=== PATIENT | female | born 1940 | race Caucasian/White ===

== ENCOUNTER 2020-05-26 08:38 | Inpatient (IN) | payer OTHER ==
[~2020-05-26] VITALS: Ht 160 cm; Wt 84.3 kg
[2020-05-26] MEDS ORDERED: ALBUTEROL SULF 2.5 MG/0.5ML(0.5%) NEB SOLN NEB ONE (09:15)
[2020-05-26] MEDS ORDERED: IPRATROPIUM BROM 0.5 MG/2.5ML INH SOL NEB ONE (09:15)
[2020-05-26] MEDS ORDERED: methylPREDNISolone SOD SUCC 125 MG/2 ML VL IV ONE (09:15)
[2020-05-26 09:34] LABS: Albumin 3.5 g/dL (3.4-5.0); Calcium 8.3 mg/dL (8.5-10.1); Potassium 3.4 mmol/L (3.5-5.1)
[2020-05-26 09:35] LABS: Basophils # (auto) 0.3 10 ^3/uL (0-0.2); Basophils % (auto) 1.3 % (0.0-2.0); Eosinophils # (auto) 0.1 10 ^3/uL (0-0.8); Eosinophils % (auto) 0.5 % (0.0-7.0); Hematocrit 34.9 % (36.0-46.0); Hemoglobin 11.3 g/dL (12.2-16.2); Lymphocytes # (auto) 2.4 10 ^3/uL (0.4-5.4); Lymphocytes % (auto) 11.4 % (10.0-50.0); Mean Corpuscular Hemoglobin 27.8 pg (28.0-32.0); Mean Corpuscular Hgb Conc. 32.2 g/dL (32.0-36.0); Mean Corpuscular Volume 86.2 fL (80.0-100.0); Monocytes # (auto) 1.4 10 ^3/uL (0-1.3); Monocytes % (auto) 6.7 % (0.0-12.0); Neutrophils # (auto) 16.8 10 ^3/uL (1.6-8.6); Neutrophils % (auto) 80.1 % (37.0-80.0); Platelet Count (auto) 359 10^3/uL (140-450); Red Blood Cells 4.05 10^6/uL (4.0-5.20); Red Cell Distribution Width 17.4 % (11.8-14.3); White Blood Cell 20.9 10^3/uL (4.4-10.8)
[2020-05-26 09:38] LABS: BUN/Creatinine Ratio 9.1; Bilirubin, Total 0.4 mg/dL (0.2-1.0); Total Protein 6.6 g/dL (6.4-8.2)
[2020-05-26] MEDS ORDERED: DOXYCYCLINE 100MG/250ML 250 ML IV ONE (10:15)
[2020-05-26] MEDS ORDERED: NITROGLYCERIN 0.4 MG SL TAB SL PRN (13:30)
[2020-05-26] MEDS ORDERED: ALBUTEROL SULF HFA 90MCG INH 200DOSE IN PRN (14:15)
[2020-05-26] MEDS ORDERED: ONDANSETRON HCL 4 MG/2 ML VIAL IV PRN (14:15)
[2020-05-26] MEDS ORDERED: traMADol HCL 50 MG TAB PO PRN (14:15)
[2020-05-26] MEDS ORDERED: ACETAMINOPHEN 500 MG TAB PO PRN (14:15)
[2020-05-26] MEDS ORDERED: LACTULOSE 20Gm/30ML SOLN PO PRN (14:15)
[2020-05-26] MEDS ORDERED: MORPHINE SULF INJ 2 MG/ML SYRINGE 1ML IV PRN (14:15)
[2020-05-26] MEDS ORDERED: DEXTROSE (50%) 50ML SYRG IV PRN (14:15)
[2020-05-26] MEDS ORDERED: REMDESIVIR PER PHARMACY 0 ML IV SCH (14:15)
[2020-05-26] MEDS ORDERED: levoFLOXacin 500MG 100 ML IV ONE (14:15)
[2020-05-26] MEDS ORDERED: POTASSIUM EFFERVESENT TAB 25 MEQ PO ONE (14:15)
[2020-05-26] MEDS: ACCU-CHEK COMFORT CURVE STRIP VI SCH ×2 (17:27→22:13)
[2020-05-26] MEDS ORDERED: LOSA-39 PO (20:45)
[2020-05-26] MEDS ORDERED: FLU220IH INH (20:45)
[2020-05-26] MEDS ORDERED: LATA0.0020 EACHEYE (20:45)
[2020-05-26] MEDS ORDERED: LEVO150T10 PO (20:45)
[2020-05-26] MEDS ORDERED: ALBU108A5 PO (20:45)
[2020-05-26] MEDS ORDERED: VENL150C58 PO (20:45)
[2020-05-26] MEDS ORDERED: OMEP-263 PO (20:45)
[2020-05-26] MEDS ORDERED: AMLO-489 PO (20:45)
[2020-05-26] MEDS: ENOXAPARIN SOD 40 MG/0.4 ML SYRINGE SC SCH (21:41)
[2020-05-26] MEDS: CLINDAMYCIN 600MG IV 50 ML IV SCH (21:41)
[2020-05-26] MEDS ORDERED: FAMOTIDINE 20 MG TAB PO SCH (22:00)
[2020-05-26] MEDS ORDERED: BUDESONIDE (INHALATION) 180 MCG IH IN SCH (22:00)
[2020-05-26] MEDS: ALBUTEROL SULF 2.5 MG/0.5ML(0.5%) NEB SOLN NEB PRN (22:05)
[2020-05-27] MEDS: ALBUTEROL SULF 2.5 MG/0.5ML(0.5%) NEB SOLN NEB PRN (04:10)
[2020-05-27 05:10] LABS: Basophils # (auto) 0.1 10 ^3/uL (0-0.2); Basophils % (auto) 0.3 % (0.0-2.0); Eosinophils # (auto) 0 10 ^3/uL (0-0.8); Hematocrit 33.2 % (36.0-46.0); Hemoglobin 10.7 g/dL (12.2-16.2); Lymphocytes # (auto) 1.1 10 ^3/uL (0.4-5.4); Lymphocytes % (auto) 5.6 % (10.0-50.0); Mean Corpuscular Hgb Conc. 32.4 g/dL (32.0-36.0); Mean Corpuscular Volume 86.4 fL (80.0-100.0); Monocytes # (auto) 0.9 10 ^3/uL (0-1.3); Neutrophils # (auto) 16.8 10 ^3/uL (1.6-8.6); Neutrophils % (auto) 89.1 % (37.0-80.0); Platelet Count (auto) 319 10^3/uL (140-450); Red Blood Cells 3.84 10^6/uL (4.0-5.20); Red Cell Distribution Width 17.3 % (11.8-14.3); White Blood Cell 18.9 10^3/uL (4.4-10.8)
[2020-05-27 05:24] LABS: Albumin 3.2 g/dL (3.4-5.0); BUN/Creatinine Ratio 27.5; Calcium 8.9 mg/dL (8.5-10.1); Potassium 3.7 mmol/L (3.5-5.1)
[2020-05-27 05:33] LABS: Bilirubin, Total 0.4 mg/dL (0.2-1.0); Total Protein 6.2 g/dL (6.4-8.2)
[2020-05-27] MEDS: CLINDAMYCIN 600MG IV 50 ML IV SCH ×3 (05:47→22:00)
[2020-05-27] MEDS: ALBUTEROL SULF 2.5 MG/0.5ML(0.5%) NEB SOLN NEB SCH ×5 (06:00→22:00)
[2020-05-27] MEDS ORDERED: IVERMECTIN 3 MG TAB PO ONE (07:00)
[2020-05-27] MEDS: ACCU-CHEK COMFORT CURVE STRIP VI SCH ×4 (07:30→22:30)
[2020-05-27] MEDS: ENOXAPARIN SOD 40 MG/0.4 ML SYRINGE SC SCH (09:15)
[2020-05-27] MEDS: levoFLOXacin 500MG 100 ML IV SCH (09:15)
[2020-05-27] MEDS ORDERED: ZINC SULFATE 220mg CAP or TAB PO SCH (10:00)
[2020-05-27] MEDS ORDERED: CHOLECALCIFEROL (VITD3) 2,000 UNIT CAP/TAB PO SCH (10:00)
[2020-05-27] MEDS ORDERED: ASCORBIC ACID 1,000 MG TAB PO SCH (10:00)
[2020-05-27] MEDS ORDERED: DexAMETHasone SOD PHOS 10MG/1ML VIAL INJ IV SCH (10:00)
[2020-05-27] MEDS ORDERED: SIMV-13 PO (17:53)
[2020-05-27] MEDS ORDERED: FLUT110A INH (17:53)
[2020-05-27 18:58] LABS: Urine Bacteria NONE SEEN /hpf (None Seen); Urine Blood Negative /uL (Negative); Urine Budding Yeast MANY /hpf (None Seen); Urine Hyaline Cast FEW /lpf (0 - 2); Urine Mucus FEW (None Seen); Urine Specific Gravity 1.016 (1.001-1.035); Urine WBC 2 /hpf (0 - 5)
[2020-05-27] MEDS: D5W 5% 1,000 ML IV SCH (20:38)
[2020-05-27] MEDS ORDERED: FUROSEMIDE 20 MG/2 ML VIAL IV ONE (21:30)
[2020-05-28] MEDS: PANTOPRAZOLE 40 MG TAB PO SCH (01:36)
[2020-05-28] MEDS: ALBUTEROL SULF 2.5 MG/0.5ML(0.5%) NEB SOLN NEB SCH ×6 (03:16→21:55)
[2020-05-28] MEDS: D5W 5% 1,000 ML IV SCH (05:35)
[2020-05-28] MEDS: ACCU-CHEK COMFORT CURVE STRIP VI SCH ×4 (07:00→22:01)
[2020-05-28 07:42] LABS: Basophils # (auto) 0.1 10 ^3/uL (0-0.2); Basophils % (auto) 0.4 % (0.0-2.0); Eosinophils # (auto) 0 10 ^3/uL (0-0.8); Eosinophils % (auto) 0.1 % (0.0-7.0); Hematocrit 36.4 % (36.0-46.0); Hemoglobin 11.8 g/dL (12.2-16.2); Lymphocytes # (auto) 2.4 10 ^3/uL (0.4-5.4); Lymphocytes % (auto) 9.1 % (10.0-50.0); Mean Corpuscular Hemoglobin 28.1 pg (28.0-32.0); Mean Corpuscular Hgb Conc. 32.4 g/dL (32.0-36.0); Mean Corpuscular Volume 86.8 fL (80.0-100.0); Monocytes # (auto) 1.4 10 ^3/uL (0-1.3); Monocytes % (auto) 5.3 % (0.0-12.0); Neutrophils # (auto) 22.7 10 ^3/uL (1.6-8.6); Neutrophils % (auto) 85.1 % (37.0-80.0); Platelet Count (auto) 361 10^3/uL (140-450); Red Cell Distribution Width 17.7 % (11.8-14.3); White Blood Cell 26.7 10^3/uL (4.4-10.8)
[2020-05-28] MEDS: CLINDAMYCIN 600MG IV 50 ML IV SCH ×2 (08:00→14:00)
[2020-05-28 08:02] LABS: Calcium 9.3 mg/dL (8.5-10.1); Potassium 3.5 mmol/L (3.5-5.1)
[2020-05-28 08:06] LABS: BUN/Creatinine Ratio 21.6
[2020-05-28] MEDS: levoFLOXacin 500MG 100 ML IV SCH (10:00)
[2020-05-28] MEDS: ENOXAPARIN SOD 40 MG/0.4 ML SYRINGE SC SCH (10:00)
[2020-05-28] MEDS: predniSONE 20 MG TAB PO SCH (10:00)
[2020-05-28] MEDS: VENLAFAXINE HCL 37.5mg XR cap PO SCH (10:11)
[2020-05-28] MEDS ORDERED: IPRATROPIUM BROM 0.5 MG/2.5ML INH SOL ONE (10:44)
[2020-05-28 17:00] VITALS: BP 138/82
[2020-05-28] MEDS: IPRATROPIUM BROM 0.5 MG/2.5ML INH SOL NEB PRN ×2 (18:03→22:01)
[2020-05-28] MEDS ORDERED: VANCOMYCIN PER PHARMACY 0 MG IV SCH (18:15)
[2020-05-28 18:35] VITALS: BP 117/72
[2020-05-28] MEDS ORDERED: VANCOMYCIN 1GM/250ML 250 ML IV ONE (18:45)
[2020-05-28] MEDS ORDERED: ERTAPENEM SOD INJ 1 GM in SODIUM CHL 0.9% 50 ML IV ONE (20:00)
[2020-05-28 22:00] VITALS: BP 120/77
[2020-05-29] MEDS: ALBUTEROL SULF 2.5 MG/0.5ML(0.5%) NEB SOLN NEB SCH ×2 (01:47→18:44)
[2020-05-29 05:00] VITALS: BP 117/66
[2020-05-29] MEDS: ACCU-CHEK COMFORT CURVE STRIP VI SCH ×3 (06:37→17:00)
[2020-05-29 06:49] LABS: Basophils # (auto) 0 10 ^3/uL (0-0.2); Eosinophils # (auto) 0.1 10 ^3/uL (0-0.8); Eosinophils % (auto) 0.5 % (0.0-7.0); Hematocrit 29.9 % (36.0-46.0); Hemoglobin 9.8 g/dL (12.2-16.2); Lymphocytes # (auto) 1.9 10 ^3/uL (0.4-5.4); Lymphocytes % (auto) 15.5 % (10.0-50.0); Mean Corpuscular Hemoglobin 28.3 pg (28.0-32.0); Mean Corpuscular Hgb Conc. 32.9 g/dL (32.0-36.0); Mean Corpuscular Volume 85.9 fL (80.0-100.0); Monocytes % (auto) 8.5 % (0.0-12.0); Neutrophils # (auto) 9.2 10 ^3/uL (1.6-8.6); Neutrophils % (auto) 75.5 % (37.0-80.0); Platelet Count (auto) 267 10^3/uL (140-450); Red Blood Cells 3.48 10^6/uL (4.0-5.20); Red Cell Distribution Width 17.7 % (11.8-14.3); White Blood Cell 12.2 10^3/uL (4.4-10.8)
[2020-05-29 07:08] LABS: BUN/Creatinine Ratio 27.8; Calcium 8.3 mg/dL (8.5-10.1); Potassium 3.1 mmol/L (3.5-5.1)
[2020-05-29 08:00] VITALS: BP 129/72
[2020-05-29] MEDS: ENOXAPARIN SOD 40 MG/0.4 ML SYRINGE SC SCH (10:32)
[2020-05-29] MEDS: predniSONE 20 MG TAB PO SCH (10:32)
[2020-05-29] MEDS: PANTOPRAZOLE 40 MG TAB PO SCH (10:32)
[2020-05-29] MEDS: VENLAFAXINE HCL 37.5mg XR cap PO SCH (10:57)
[2020-05-29] MEDS ORDERED: VANCOMYCIN 1GM/250ML 250 ML IV SCH (15:00)
[2020-05-29] MEDS ORDERED: POTASSIUM CHL 20 Meq TABLET PO ONE (15:45)
[2020-05-29] MEDS ORDERED: POTASSIUM CHL 20MEQ/100ML 100 ML IV ONE (15:45)
[2020-05-29] MEDS ORDERED: levoFLOXacin 500 MG TAB PO SCH (15:45)
[2020-05-29] MEDS ORDERED: CLINDAMYCIN HCL 150 MG CAP PO SCH (15:45)
[2020-05-29 16:00] VITALS: BP 114/78
[2020-05-29] MEDS ORDERED: AMLO-489 PO (16:26)
[2020-05-29] MEDS ORDERED: POTA-220 PO (16:26)
[2020-05-29] MEDS ORDERED: CLIN300C8 PO (16:26)
[2020-05-29] MEDS ORDERED: LOSA-39 PO (16:26)
[2020-05-29] MEDS ORDERED: LEVO500T31 PO (16:26)
[2020-05-29] MEDS: IPRATROPIUM BROM 0.5 MG/2.5ML INH SOL NEB PRN (18:44)
[2020-05-29 18:49] VITALS: BP 114/78
[2020-05-29] MEDS ORDERED: ERTAPENEM SOD INJ 1 GM in SODIUM CHL 0.9% 50 ML IV SCH (21:00)
[2020-05-29] MEDS: ALBUTEROL SULF 2.5 MG/0.5ML(0.5%) NEB SOLN NEB PRN (21:10)
[2020-05-30] MEDS ORDERED: POTASSIUM CHL 20 Meq TABLET PO SCH (10:00)
== END 2020-05-29 21:43 | disposition home or self-care (01) | DRG 871 ==
LOC: EDBD 08:38 → ER 08:38 → TELE 13:19 → TELE-CENTR 05-28 17:02
PROVIDERS: ADMIT Internal Medicine; ATTEND Internal Medicine
DX: A41.9 Sepsis, unspecified organism (principal); J12.9 Viral pneumonia, unspecified; J96.21 Acute and chronic respiratory failure with hypoxia; J44.1 Chronic obstructive pulmonary disease with (acute) exacerbation; E87.0 Hyperosmolality and hypernatremia; J98.11 Atelectasis; J44.0 Chronic obstructive pulmonary disease with (acute) lower respiratory infection; Z20.822 Contact with and (suspected) exposure to COVID-19; J20.9 Acute bronchitis, unspecified; E87.6 Hypokalemia; I25.10 Atherosclerotic heart disease of native coronary artery without angina pectoris; K21.9 Gastro-esophageal reflux disease without esophagitis; F32.9 Major depressive disorder, single episode, unspecified; E66.01 Morbid (severe) obesity due to excess calories; F17.210 Nicotine dependence, cigarettes, uncomplicated; I50.9 Heart failure, unspecified; I11.0 Hypertensive heart disease with heart failure; Z68.25 Body mass index [BMI] 25.0-25.9, adult; Z88.8 Allergy status to other drugs, medicaments and biological substances; Z88.5 Allergy status to narcotic agent; Z79.51 Long term (current) use of inhaled steroids; Z95.1 Presence of aortocoronary bypass graft; Z95.3 Presence of xenogenic heart valve; Z98.84 Bariatric surgery status; Z79.899 Other long term (current) drug therapy
CPT/HCPCS: 36415; 36600; 71045; 71250; 80048; 80053; 81001; 82728; 82805; 82962; 83036; 83605; 83880; 84484; 85025; 87040; 87086; 87426; 87804; 93005; 93306; 94640; 96365; 96366; 96375; G0378; J1100; J1335; J1956; J3490

== ENCOUNTER 2020-06-18 10:53 | Inpatient (IN) | payer OTHER ==
[2020-06-18] VITALS (26 sets, daily range): BP systolic 67–136; BP diastolic 42–87
[~2020-06-18] VITALS: Ht 157.5 cm; Wt 76.0 kg
[~2020-06-18 10:53] MED LIST: ALBU108A5 PO; AMLO-489 PO; CLIN300C8 PO; FLU220IH INH; FLUT110A INH; LATA0.0020 EACHEYE; LEVO150T10 PO; LEVO500T31 PO; LOSA-39 PO; OMEP-263 PO; POTA-220 PO; SIMV-13 PO; VENL150C58 PO
[2020-06-18] MEDS ORDERED: SUCCINYLCHOLINE CHLORIDE 20 MG/ML 10ML VIAL IV ONE ×2 (10:57→11:02)
[2020-06-18] MEDS ORDERED: ETOMIDATE (2MG/ML) 20ML VIAL IV ONE ×2 (10:57→11:01)
[2020-06-18] MEDS ORDERED: MIDAZOLAM DRIP 50 mg/50mL 50 ML IV ONE (11:01)
[2020-06-18] MEDS: MIDAZOLAM DRIP 50 mg/50mL 50 ML IV SCH ×3 (11:06→20:35)
[2020-06-18] MEDS ORDERED: fentaNYL Drip 2500mCg/250mlNS 250 ML IV ONE (11:28)
[2020-06-18] MEDS: fentaNYL Drip 2500mCg/250mlNS 250 ML IV SCH (11:45)
[2020-06-18 12:39] LABS: Lactic Acid w/Reflex 3.5 mmol/L (0.4-2.0)
[2020-06-18] MEDS ORDERED: NOREPINEPHRINE 8 MG/250ML KIT 250 ML IV SCH (13:00)
[2020-06-18] MEDS: NOREPINEPHRINE 8 MG/250ML KIT 250 ML IV SCH (13:22)
[2020-06-18 13:35] LABS: Basophils # (auto) 0 10 ^3/uL (0-0.2); Basophils % (auto) 0.1 % (0.0-2.0); Eosinophils # (auto) 0 10 ^3/uL (0-0.8); Lymphocytes # (auto) 0.6 10 ^3/uL (0.4-5.4); Lymphocytes % (auto) 2.7 % (10.0-50.0); Mean Corpuscular Hgb Conc. 32.4 g/dL (32.0-36.0); Mean Corpuscular Volume 86.4 fL (80.0-100.0); Monocytes # (auto) 1.1 10 ^3/uL (0-1.3); Neutrophils # (auto) 20.3 10 ^3/uL (1.6-8.6); Neutrophils % (auto) 92.2 % (37.0-80.0); Platelet Count (auto) 357 10^3/uL (140-450); Red Blood Cells 3.59 10^6/uL (4.0-5.20); Red Cell Distribution Width 19.7 % (11.8-14.3); White Blood Cell 22.1 10^3/uL (4.4-10.8)
[2020-06-18 13:49] LABS: Albumin 2.7 g/dL (3.4-5.0); Potassium 3.2 mmol/L (3.5-5.1)
[2020-06-18 13:54] LABS: BUN/Creatinine Ratio 13.9; Bilirubin, Total 0.3 mg/dL (0.2-1.0); Total Protein 5.6 g/dL (6.4-8.2)
[2020-06-18] MEDS ORDERED: DEXTROSE (50%) 50ML SYRG IV PRN (14:00)
[2020-06-18] MEDS ORDERED: VANCOMYCIN PER PHARMACY 0 MG IV SCH (14:00)
[2020-06-18] MEDS ORDERED: NITROGLYCERIN 0.4 MG SL TAB SL PRN (14:00)
[2020-06-18] MEDS ORDERED: POTASSIUM CHL 20MEQ/100ML 100 ML IV ONE (15:00)
[2020-06-18] MEDS ORDERED: SODIUM CHLORIDE 0.9% 500 ML IV ONE (15:00)
[2020-06-18 15:48] LABS: Magnesium 2.3 mg/dL (1.6-2.6)
[2020-06-18] MEDS: SODIUM CHLORIDE 0.9% 1,000 ML IV SCH (15:54)
[2020-06-18] MEDS ORDERED: VANCOMYCIN 1GM/250ML 250 ML IV ONE (16:00)
[2020-06-18] MEDS: ACCU-CHEK COMFORT CURVE STRIP VI SCH (17:26)
[2020-06-18] MEDS: PIPERACILLIN-TAZOB 3.375GM 100 ML IV SCH ×2 (17:53→23:59)
[2020-06-18] MEDS: InsuLIN REG 1unit/0.01ml Soln (100units/ml) SC SCH ×2 (17:54→23:59)
[2020-06-18 20:13] LABS: Potassium 3.8 mmol/L (3.5-5.1)
[2020-06-18] MEDS: ATORVASTATIN 20 MG TAB PO SCH (21:54)
[2020-06-19] VITALS (89 sets, daily range): BP systolic 55–155; BP diastolic 31–97
[2020-06-19] MEDS: SODIUM CHLORIDE 0.9% 1,000 ML IV SCH (01:18)
[2020-06-19] MEDS: MIDAZOLAM DRIP 50 mg/50mL 50 ML IV SCH ×5 (01:18→22:06)
[2020-06-19] MEDS: fentaNYL Drip 2500mCg/250mlNS 250 ML IV SCH (01:43)
[2020-06-19 05:02] LABS: Basophils # (auto) 0 10 ^3/uL (0-0.2); Basophils % (auto) 0.2 % (0.0-2.0); Eosinophils # (auto) 0 10 ^3/uL (0-0.8); Eosinophils % (auto) 0.2 % (0.0-7.0); Hematocrit 31.5 % (36.0-46.0); Hemoglobin 10.2 g/dL (12.2-16.2); Lymphocytes # (auto) 1.4 10 ^3/uL (0.4-5.4); Lymphocytes % (auto) 9.3 % (10.0-50.0); Mean Corpuscular Hemoglobin 28.2 pg (28.0-32.0); Mean Corpuscular Hgb Conc. 32.3 g/dL (32.0-36.0); Mean Corpuscular Volume 87.3 fL (80.0-100.0); Monocytes # (auto) 1.1 10 ^3/uL (0-1.3); Monocytes % (auto) 7.5 % (0.0-12.0); Neutrophils # (auto) 12.4 10 ^3/uL (1.6-8.6); Neutrophils % (auto) 82.8 % (37.0-80.0); Nucleated Red Blood Cells % 0.1 %; Platelet Count (auto) 320 10^3/uL (140-450); Red Blood Cells 3.61 10^6/uL (4.0-5.20); Red Cell Distribution Width 19.9 % (11.8-14.3); White Blood Cell 14.9 10^3/uL (4.4-10.8)
[2020-06-19 05:27] LABS: BUN/Creatinine Ratio 16.4; Calcium 7.9 mg/dL (8.5-10.1); Magnesium 2.1 mg/dL (1.6-2.6)
[2020-06-19] MEDS: ALBUTEROL SULF 2.5 MG/0.5ML(0.5%) NEB SOLN NEB SCH ×5 (05:50→18:36)
[2020-06-19] MEDS: PIPERACILLIN-TAZOB 3.375GM 100 ML IV SCH ×4 (05:59→23:44)
[2020-06-19] MEDS: InsuLIN REG 1unit/0.01ml Soln (100units/ml) SC SCH ×4 (06:00→23:44)
[2020-06-19] MEDS: ACCU-CHEK COMFORT CURVE STRIP VI SCH ×5 (06:00→23:44)
[2020-06-19] MEDS ORDERED: FUROSEMIDE 20 MG/2 ML VIAL IV ONE (08:30)
[2020-06-19] MEDS: POTASSIUM CHL 20MEQ/100ML 100 ML IV SCH ×2 (09:04→11:31)
[2020-06-19] MEDS ORDERED: FAMOTIDINE (10MG/ML) 2ML VL IV SCH (10:00)
[2020-06-19] MEDS ORDERED: ENOXAPARIN SOD 40 MG/0.4 ML SYRINGE SC SCH (10:00)
[2020-06-19] MEDS: ACETAMINOPHEN 650 mg PER 20.3 mL UD GT PRN ×2 (10:03→21:25)
[2020-06-19 10:25] LABS: INR 1.03 (0.9-1.15); Partial Thromboplastin Time 25.1 sec (23.0-31.2)
[2020-06-19] MEDS: PANTOPRAZOLE 40 MG/10 ML VIAL INJ IV SCH ×2 (11:39→21:42)
[2020-06-19] MEDS: ALBUMIN 25% 100 ML IV SCH ×2 (11:40→19:28)
[2020-06-19 12:22] LABS: Urine Bacteria FEW /hpf (None Seen); Urine Blood 2+ /uL (Negative); Urine Budding Yeast OCCASIONAL /hpf (None Seen); Urine Hyaline Cast FEW /lpf (0 - 2); Urine Mucus FEW (None Seen); Urine WBC 9 /hpf (0 - 5)
[2020-06-19] MEDS: IPRATROPIUM BROM 0.5 MG/2.5ML INH SOL NEB SCH ×2 (12:22→18:36)
[2020-06-19] MEDS: NOREPINEPHRINE 8 MG/250ML KIT 250 ML IV SCH (13:16)
[2020-06-19] MEDS: LEVOTHYROXINE SODIUM 100 MCG/5 ML INJ IV SCH (15:10)
[2020-06-19] MEDS: VANCOMYCIN 1GM/250ML 250 ML IV SCH (15:55)
[2020-06-19] MEDS: VENLAFAXINE HCL 37.5MG TABLET PO SCH ×2 (15:56→21:42)
[2020-06-19] MEDS ORDERED: OMEP-434 PO (15:59)
[2020-06-19] MEDS ORDERED: ASPI-691 PO (16:01)
[2020-06-19] MEDS ORDERED: MULT-688 PO (17:08)
[2020-06-19] MEDS ORDERED: CYAN500T15 PO (17:08)
[2020-06-19] MEDS ORDERED: TIOT1AER IN (17:08)
[2020-06-19] MEDS ORDERED: IPRA0.00 IN (17:08)
[2020-06-19] MEDS ORDERED: CHOL20007 PO (17:08)
[2020-06-19] MEDS ORDERED: [UNRECOGNIZED DRUG - CODE] PO (17:08)
[2020-06-19] MEDS: ATORVASTATIN 20 MG TAB PO SCH (21:42)
[2020-06-20] VITALS (101 sets, daily range): BP systolic 85–151; BP diastolic 52–104
[2020-06-20] MEDS: ALBUTEROL SULF 2.5 MG/0.5ML(0.5%) NEB SOLN NEB SCH ×5 (00:19→23:30)
[2020-06-20] MEDS: IPRATROPIUM BROM 0.5 MG/2.5ML INH SOL NEB SCH ×5 (00:19→23:30)
[2020-06-20] MEDS: ALBUMIN 25% 100 ML IV SCH (02:48)
[2020-06-20] MEDS: MIDAZOLAM DRIP 50 mg/50mL 50 ML IV SCH ×5 (03:02→23:06)
[2020-06-20] MEDS: ACETAMINOPHEN 650 mg PER 20.3 mL UD GT PRN ×2 (03:54→17:06)
[2020-06-20 04:30] LABS: Hematocrit 30.7 % (36.0-46.0); Mean Corpuscular Hemoglobin 28.3 pg (28.0-32.0); Mean Corpuscular Hgb Conc. 32.4 g/dL (32.0-36.0); Mean Corpuscular Volume 87.3 fL (80.0-100.0); Platelet Count (auto) 274 10^3/uL (140-450); Red Blood Cells 3.52 10^6/uL (4.0-5.20); Red Cell Distribution Width 19.7 % (11.8-14.3); White Blood Cell 25.7 10^3/uL (4.4-10.8)
[2020-06-20 04:43] LABS: Basophils % (manual) 0 (0.0-2.0); Blast Cells 0; Eosinophils % (manual) 0 (0-7); Myelocytes % 0; Promyelocytes % 0; Reactive Lymphocytes 0
[2020-06-20 05:09] LABS: BUN/Creatinine Ratio 11.1
[2020-06-20] MEDS: ACCU-CHEK COMFORT CURVE STRIP VI SCH ×4 (05:27→23:29)
[2020-06-20] MEDS: PIPERACILLIN-TAZOB 3.375GM 100 ML IV SCH ×3 (05:27→17:06)
[2020-06-20] MEDS: InsuLIN REG 1unit/0.01ml Soln (100units/ml) SC SCH ×4 (05:27→23:29)
[2020-06-20] MEDS: fentaNYL Drip 2500mCg/250mlNS 250 ML IV SCH (05:33)
[2020-06-20 06:41] LABS: Band Neutrophils % (manual) 24; Lymphocytes % (manual) 7 (10.0-50.0); Metamyelocytes % 1; Monocytes % (manual) 5 (0-12)
[2020-06-20] MEDS: LEVOTHYROXINE SODIUM 100 MCG/5 ML INJ IV SCH (09:45)
[2020-06-20] MEDS: PANTOPRAZOLE 40 MG/10 ML VIAL INJ IV SCH ×2 (09:45→21:43)
[2020-06-20] MEDS: VENLAFAXINE HCL 37.5MG TABLET PO SCH ×2 (09:45→21:58)
[2020-06-20] MEDS ORDERED: FUROSEMIDE 40 MG/4 ML VIAL IV ONE (12:45)
[2020-06-20] MEDS: NOREPINEPHRINE 8 MG/250ML KIT 250 ML IV SCH (13:15)
[2020-06-20] MEDS: POTASSIUM CHL 20MEQ/100ML 100 ML IV SCH ×4 (14:15→23:21)
[2020-06-20] MEDS: VANCOMYCIN 1GM/250ML 250 ML IV SCH (16:11)
[2020-06-20 20:25] LABS: Magnesium 1.9 mg/dL (1.6-2.6)
[2020-06-20 20:59] LABS: Potassium 2.8 mmol/L (3.5-5.1)
[2020-06-20] MEDS ORDERED: POTASSIUM EFFERVESENT TAB 25 MEQ GT ONE (21:15)
[2020-06-20] MEDS: MAGNESIUM SULFATE 1GM/100ML 100 ML IV SCH ×2 (21:42→23:08)
[2020-06-20] MEDS: ATORVASTATIN 20 MG TAB PO SCH (21:43)
[2020-06-20] MEDS: MEROPENEM 1GM IVPB 100 ML IV SCH (21:43)
[2020-06-21] VITALS (87 sets, daily range): BP systolic 78–123; BP diastolic 48–87
[2020-06-21] MEDS: MAGNESIUM SULFATE 1GM/100ML 100 ML IV SCH (00:09)
[2020-06-21] MEDS: ACETAMINOPHEN 650 mg PER 20.3 mL UD GT PRN (00:25)
[2020-06-21] MEDS: NOREPINEPHRINE 8 MG/250ML KIT 250 ML IV SCH (01:18)
[2020-06-21] MEDS: POTASSIUM CHL 20MEQ/100ML 100 ML IV SCH (02:20)
[2020-06-21] MEDS: MIDAZOLAM DRIP 50 mg/50mL 50 ML IV SCH (04:06)
[2020-06-21] MEDS: MEROPENEM 1GM IVPB 100 ML IV SCH ×3 (05:38→22:00)
[2020-06-21] MEDS: InsuLIN REG 1unit/0.01ml Soln (100units/ml) SC SCH ×3 (05:39→17:14)
[2020-06-21] MEDS: ACCU-CHEK COMFORT CURVE STRIP VI SCH ×3 (05:39→18:00)
[2020-06-21 06:15] LABS: Hematocrit 30.1 % (36.0-46.0); Mean Corpuscular Hemoglobin 28.7 pg (28.0-32.0); Mean Corpuscular Hgb Conc. 33.1 g/dL (32.0-36.0); Mean Corpuscular Volume 86.8 fL (80.0-100.0); Platelet Count (auto) 278 10^3/uL (140-450); Red Blood Cells 3.47 10^6/uL (4.0-5.20); White Blood Cell 27.7 10^3/uL (4.4-10.8)
[2020-06-21 06:26] LABS: Red Cell Distribution Width 20.1 % (11.8-14.3)
[2020-06-21 06:28] LABS: Basophils % (manual) 0 (0.0-2.0); Blast Cells 0; Metamyelocytes % 0; Myelocytes % 0; Promyelocytes % 0; Reactive Lymphocytes 0
[2020-06-21 06:32] LABS: Calcium 8.2 mg/dL (8.5-10.1); Potassium 3.4 mmol/L (3.5-5.1)
[2020-06-21 06:39] LABS: BUN/Creatinine Ratio 17.4
[2020-06-21] MEDS: ALBUTEROL SULF 2.5 MG/0.5ML(0.5%) NEB SOLN NEB SCH ×3 (07:07→18:28)
[2020-06-21] MEDS: IPRATROPIUM BROM 0.5 MG/2.5ML INH SOL NEB SCH ×3 (07:07→18:28)
[2020-06-21 08:13] LABS: Band Neutrophils % (manual) 19; Eosinophils % (manual) 1 (0-7); Lymphocytes % (manual) 1 (10.0-50.0); Monocytes % (manual) 2 (0-12)
[2020-06-21] MEDS ORDERED: POTASSIUM CHL 20MEQ/100ML 100 ML IV ONE (08:45)
[2020-06-21] MEDS: PANTOPRAZOLE 40 MG/10 ML VIAL INJ IV SCH ×2 (09:17→22:00)
[2020-06-21] MEDS: LEVOTHYROXINE SODIUM 100 MCG/5 ML INJ IV SCH (09:18)
[2020-06-21] MEDS: VENLAFAXINE HCL 37.5MG TABLET PO SCH ×2 (09:18→22:00)
[2020-06-21] MEDS: FLUCONAZOLE 200MG/100ML 100 ML IV SCH (13:11)
[2020-06-21] MEDS: VANCOMYCIN 1GM/250ML 250 ML IV SCH (16:12)
[2020-06-21] MEDS: ATORVASTATIN 20 MG TAB PO SCH (22:00)
[2020-06-22] VITALS (27 sets, daily range): BP systolic 92–133; BP diastolic 51–92
[2020-06-22] MEDS: IPRATROPIUM BROM 0.5 MG/2.5ML INH SOL NEB SCH ×4 (00:10→18:26)
[2020-06-22] MEDS: ALBUTEROL SULF 2.5 MG/0.5ML(0.5%) NEB SOLN NEB SCH ×4 (00:10→18:26)
[2020-06-22] MEDS: ACETAMINOPHEN 650 mg PER 20.3 mL UD GT PRN (01:28)
[2020-06-22] MEDS: VANCOMYCIN 1GM/250ML 250 ML IV SCH ×2 (04:00→17:20)
[2020-06-22 04:53] LABS: Basophils # (auto) 0 10 ^3/uL (0-0.2); Basophils % (auto) 0.1 % (0.0-2.0); Eosinophils # (auto) 0 10 ^3/uL (0-0.8); Eosinophils % (auto) 0.1 % (0.0-7.0); Hematocrit 29.1 % (36.0-46.0); Hemoglobin 9.6 g/dL (12.2-16.2); Lymphocytes # (auto) 0.9 10 ^3/uL (0.4-5.4); Mean Corpuscular Hemoglobin 28.6 pg (28.0-32.0); Mean Corpuscular Hgb Conc. 32.8 g/dL (32.0-36.0); Mean Corpuscular Volume 87.3 fL (80.0-100.0); Monocytes # (auto) 1.4 10 ^3/uL (0-1.3); Monocytes % (auto) 6.6 % (0.0-12.0); Neutrophils # (auto) 19.5 10 ^3/uL (1.6-8.6); Neutrophils % (auto) 89.2 % (37.0-80.0); Platelet Count (auto) 268 10^3/uL (140-450); Red Blood Cells 3.33 10^6/uL (4.0-5.20); White Blood Cell 21.9 10^3/uL (4.4-10.8)
[2020-06-22 04:55] LABS: Red Cell Distribution Width 20.1 % (11.8-14.3)
[2020-06-22 05:04] LABS: Calcium 8.6 mg/dL (8.5-10.1); Potassium 3.5 mmol/L (3.5-5.1)
[2020-06-22 05:06] LABS: BUN/Creatinine Ratio 29.8
[2020-06-22] MEDS: InsuLIN REG 1unit/0.01ml Soln (100units/ml) SC SCH ×5 (05:58→23:50)
[2020-06-22] MEDS: MEROPENEM 1GM IVPB 100 ML IV SCH ×3 (06:03→23:35)
[2020-06-22] MEDS: ACCU-CHEK COMFORT CURVE STRIP VI SCH ×5 (06:03→23:50)
[2020-06-22] MEDS ORDERED: SODIUM CHLORIDE 0.9% 1,000 ML IV ONE (09:00)
[2020-06-22] MEDS ORDERED: SODIUM CHLORIDE 0.9% 500 ML IV ONE (09:00)
[2020-06-22] MEDS: FLUCONAZOLE 200MG/100ML 100 ML IV SCH (10:33)
[2020-06-22] MEDS: VENLAFAXINE HCL 37.5MG TABLET PO SCH ×2 (10:34→23:35)
[2020-06-22] MEDS: LEVOTHYROXINE SODIUM 100 MCG/5 ML INJ IV SCH (10:34)
[2020-06-22] MEDS: PANTOPRAZOLE 40 MG/10 ML VIAL INJ IV SCH ×2 (10:34→23:35)
[2020-06-22] MEDS: VANCOMYCIN HCL 125MG/5ML ORAL SOL PO SCH ×3 (12:54→22:00)
[2020-06-22] MEDS: ATORVASTATIN 20 MG TAB PO SCH (23:35)
[2020-06-23] MEDS: ALBUTEROL SULF 2.5 MG/0.5ML(0.5%) NEB SOLN NEB SCH ×4 (00:01→18:28)
[2020-06-23] MEDS: IPRATROPIUM BROM 0.5 MG/2.5ML INH SOL NEB SCH ×4 (00:01→18:28)
[2020-06-23] MEDS: VANCOMYCIN 1GM/250ML 250 ML IV SCH ×2 (04:00→04:20)
[2020-06-23 05:00] VITALS: BP 111/81
[2020-06-23] MEDS: ACCU-CHEK COMFORT CURVE STRIP VI SCH ×3 (05:31→18:00)
[2020-06-23] MEDS: InsuLIN REG 1unit/0.01ml Soln (100units/ml) SC SCH ×3 (05:31→18:00)
[2020-06-23 05:42] LABS: Basophils # (auto) 0.1 10 ^3/uL (0-0.2); Basophils % (auto) 0.3 % (0.0-2.0); Eosinophils # (auto) 0.1 10 ^3/uL (0-0.8); Eosinophils % (auto) 0.6 % (0.0-7.0); Hematocrit 29.4 % (36.0-46.0); Hemoglobin 9.7 g/dL (12.2-16.2); Lymphocytes % (auto) 5.7 % (10.0-50.0); Mean Corpuscular Hemoglobin 28.7 pg (28.0-32.0); Mean Corpuscular Hgb Conc. 32.9 g/dL (32.0-36.0); Mean Corpuscular Volume 87.2 fL (80.0-100.0); Monocytes # (auto) 1.5 10 ^3/uL (0-1.3); Monocytes % (auto) 8.5 % (0.0-12.0); Neutrophils % (auto) 84.9 % (37.0-80.0); Platelet Count (auto) 256 10^3/uL (140-450); Red Blood Cells 3.37 10^6/uL (4.0-5.20); Red Cell Distribution Width 19.9 % (11.8-14.3); White Blood Cell 17.6 10^3/uL (4.4-10.8)
[2020-06-23] MEDS: VANCOMYCIN HCL 125MG/5ML ORAL SOL PO SCH ×3 (06:00→18:49)
[2020-06-23 06:31] LABS: BUN/Creatinine Ratio 21.7; Calcium 8.3 mg/dL (8.5-10.1)
[2020-06-23] MEDS: MEROPENEM 1GM IVPB 100 ML IV SCH ×2 (06:40→14:00)
[2020-06-23 09:04] VITALS: BP 101/64
[2020-06-23] MEDS: VENLAFAXINE HCL 37.5MG TABLET PO SCH (10:31)
[2020-06-23] MEDS: LEVOTHYROXINE SODIUM 100 MCG/5 ML INJ IV SCH (10:32)
[2020-06-23] MEDS: PANTOPRAZOLE 40 MG/10 ML VIAL INJ IV SCH (10:32)
[2020-06-23] MEDS: FLUCONAZOLE 200MG/100ML 100 ML IV SCH (10:33)
[2020-06-23 12:56] VITALS: BP 103/69
[2020-06-23 16:43] VITALS: BP 133/75
[2020-06-23 16:46] VITALS: BP 121/85
== END 2020-06-23 19:20 | DRG 871 ==
LOC: EDBD 10:53 → ER 10:53 → OVERFLOW 10:54 → ICU WEST 18:42 → TELE-CENTR 06-22 19:39
PROVIDERS: ADMIT Nurse Practitioner Acute Care; ATTEND Internal Medicine
PROC: 0BH17EZ Insertion of Endotracheal Airway into Trachea, Via Natural or Artificial Opening (ICD-10-PCS; principal; 2020-06-18)
PROC: 5A09357 Assistance with Respiratory Ventilation, Less than 24 Consecutive Hours, Continuous Positive Airway Pressure (ICD-10-PCS; 2020-06-18)
PROC: 5A1945Z Respiratory Ventilation, 24-96 Consecutive Hours (ICD-10-PCS; 2020-06-18)
PROC: 02HV33Z Insertion of Infusion Device into Superior Vena Cava, Percutaneous Approach (ICD-10-PCS; 2020-06-18)
DX: A41.9 Sepsis, unspecified organism (principal); J96.01 Acute respiratory failure with hypoxia; R65.21 Severe sepsis with septic shock; J18.9 Pneumonia, unspecified organism; I21.4 Non-ST elevation (NSTEMI) myocardial infarction; I50.23 Acute on chronic systolic (congestive) heart failure; E46 Unspecified protein-calorie malnutrition; A04.72 Enterocolitis due to Clostridium difficile, not specified as recurrent; N39.0 Urinary tract infection, site not specified; Z20.822 Contact with and (suspected) exposure to COVID-19; E87.6 Hypokalemia; E78.5 Hyperlipidemia, unspecified; J43.8 Other emphysema; E11.9 Type 2 diabetes mellitus without complications; I35.0 Nonrheumatic aortic (valve) stenosis; E66.9 Obesity, unspecified; Z68.31 Body mass index [BMI] 31.0-31.9, adult; F41.9 Anxiety disorder, unspecified; K21.9 Gastro-esophageal reflux disease without esophagitis; Z78.9 Other specified health status; E03.9 Hypothyroidism, unspecified; F32.9 Major depressive disorder, single episode, unspecified; I11.0 Hypertensive heart disease with heart failure; I25.10 Atherosclerotic heart disease of native coronary artery without angina pectoris; I25.2 Old myocardial infarction; Z79.51 Long term (current) use of inhaled steroids; Z79.899 Other long term (current) drug therapy; Z90.710 Acquired absence of both cervix and uterus; Z95.3 Presence of xenogenic heart valve; Z98.84 Bariatric surgery status; Z79.84 Long term (current) use of oral hypoglycemic drugs; F17.200 Nicotine dependence, unspecified, uncomplicated; Z88.8 Allergy status to other drugs, medicaments and biological substances
CPT/HCPCS: 31500; 36415; 36556; 36600; 51702; 71045; 80048; 80053; 80061; 80202; 81001; 82805; 82962; 83605; 83735; 83880; 84132; 84443; 84484; 85007; 85025; 85027; 85610; 85730; 87040; 87045; 87070; 87081; 87086; 87088; 87186; 87205; 87426; 87427; 87493; 92610; 93005; 94002; 94003; 94640; 96365; 96367; 99291; C9113; G0378; J0330; J1450; J1815; J2185; J2250; J2543; J3480; J3490; P9047